=== PATIENT | male | born 1950 | race Caucasian/White ===

== ENCOUNTER → 2017-07-04 | Outpatient (CLI) | payer MEDICARE, BC ==
[~2017-07-04] MED LIST: ASCO10004 PO; ASPI-515 PO; ATOR10TA PO; FURO-93 PO; MV,M1TAB PO
[2017-07-04 15:50] LABS: BLOOD UREA NITROGEN 13 mg/dL (7-18)
[2017-07-04 15:54] LABS: ASPARTATE AMINO TRANSFERASE 21 U/L (15-37)
== END | disposition home or self-care (01) ==
LOC: LAB 12:22
PROVIDERS: ATTEND Internal Medicine Cardiovascular Disease
DX: E78.2 Mixed hyperlipidemia (principal); I25.10 Atherosclerotic heart disease of native coronary artery without angina pectoris
CPT/HCPCS: 36415; 80053; 80061

== ENCOUNTER → 2017-08-06 | Outpatient (CLI) | payer MEDICARE, BC | LOC: CFH 15:01 | PROVIDERS: ATTEND Physician Assistant | DX: N40.1 Benign prostatic hyperplasia with lower urinary tract symptoms (principal) | CPT/HCPCS: 36415; 84153 ==

== ENCOUNTER → 2017-08-27 | Outpatient (CLI) | payer MEDICARE, BC ==
[2017-08-27 16:03] LABS: MICROSCOPIC AUTO
[2017-08-27 16:08] LABS: CULTURE INDICATED? YES
== END | disposition home or self-care (01) ==
LOC: CFH 12:53
PROVIDERS: ATTEND Urology
DX: R33.9 Retention of urine, unspecified (principal)
CPT/HCPCS: 81001; 87077; 87086; 87186

== ENCOUNTER → 2017-11-04 | Outpatient (CLI) | payer MEDICARE, BC ==
[2017-11-04 15:44] LABS: ALANINE AMINOTRANSFERASE 70 U/L (12-78); ALBUMIN 2.9 g/dL (3.4-5.0); ANION GAP 9 mmol/L (5-15); CALCIUM 8.2 mg/dL (8.5-10.1); CHLORIDE 109 mmol/L (98-107); CHOLESTEROL, TOTAL 113 mg/dL (140-239); CREATININE 0.94 mg/dL (0.7-1.3)
[2017-11-04 15:47] LABS: ALKALINE PHOSPHATASE 65 U/L (45-117); BILIRUBIN,TOTAL 0.5 mg/dL (0.2-1.0); CHOL/HDL RATIO 2.8; HDL CHOL % 36 % (26-37); HDL CHOLESTEROL (DIRECT) 41 mg/dL (40-60); LDL CHOLESTEROL,CALCULATED 57 mg/dL (54-169); LDL/HDL RATIO 1.4 (0.5-3.0); TOTAL PROTEIN 6.4 g/dL (6.4-8.2); TRIGLYCERIDES 76 mg/dL (50-200); VLDL CHOLESTEROL 15 mg/dL (0-25)
== END | disposition home or self-care (01) ==
LOC: CFH 14:00
PROVIDERS: ATTEND Internal Medicine Cardiovascular Disease
DX: E78.2 Mixed hyperlipidemia (principal); I10 Essential (primary) hypertension
CPT/HCPCS: 36415; 80053; 80061

== ENCOUNTER → 2018-03-07 | Outpatient (CLI) | payer MEDICARE, BC ==
[2018-03-07 12:31] LABS: ANION GAP 9 mmol/L (5-15); CALCIUM 8.7 mg/dL (8.5-10.1); CHLORIDE 111 mmol/L (98-107); CREATININE 1.06 mg/dL (0.7-1.3)
== END | disposition home or self-care (01) ==
LOC: LAB 12:03
PROVIDERS: ATTEND Nurse Practitioner Family
DX: I10 Essential (primary) hypertension (principal); E78.2 Mixed hyperlipidemia
CPT/HCPCS: 36415; 80048

== ENCOUNTER → 2018-06-30 | Outpatient (CLI) | payer MEDICARE, BC ==
[~2018-06-30] MED LIST changes: +ASCO100019 PO; +ATOR20TA37 PO; +FURO20TA3 PO; +IRBE300T16 PO; +MULT-224 PO; +OMEP20TA62 PO; +POTA10CA PO; +PSYL0.5215 PO; +SPIR25TA5 PO; +TAMS-11 PO; +WARF-36 PO
[2018-06-30 15:01] LABS: BASOPHILS # (AUTO) 0.03 x10^3/uL (0-0.1); BASOPHILS % (AUTO) 0 % (0-1); EOSINOPHILS # (AUTO) 0.05 x10^3/uL (0-0.4); EOSINOPHILS % (AUTO) 1 % (1-7); LYMPHOCYTES # (AUTO) 2.29 x10^3/uL (1-3.4); LYMPHOCYTES % (AUTO) 25 % (22-44); MD NO; MEAN CORPUSCULAR HEMOGLOBIN 33.4 pg (27.5-34.5); MEAN CORPUSCULAR VOLUME 98.3 fL (81-97); MEAN PLATELET VOLUME 7.1 fL (7.4-10.4); MONOCYTES # (AUTO) 0.58 x10^3/uL (0.2-0.8); MONOCYTES % (AUTO) 6 % (2-9); NEUTROPHILS # (AUTO) 6.18 x10^3/uL (1.8-6.8); NEUTROPHILS % (AUTO) 68 % (42-75); PLATELET COUNT 221 x10^3/uL (130-400); RED BLOOD COUNT 4.37 x10^6/uL (4.38-5.82); RED CELL DISTRIBUTION WIDTH 13.4 % (9.4-14.8)
[2018-06-30 15:07] LABS: ALBUMIN 3.7 g/dL (3.4-5.0); ANION GAP 7 mmol/L (5-15); CALCIUM 8.7 mg/dL (8.5-10.1); CHLORIDE 108 mmol/L (98-107)
[2018-06-30 15:10] LABS: ALANINE AMINOTRANSFERASE 38 U/L (12-78); ALKALINE PHOSPHATASE 86 U/L (45-117); BILIRUBIN,TOTAL 0.7 mg/dL (0.2-1.0); CREATININE 1.25 mg/dL (0.7-1.3); TOTAL PROTEIN 7.1 g/dL (6.4-8.2)
== END | disposition home or self-care (01) ==
LOC: STAR 13:52
PROVIDERS: ATTEND Urology
DX: Z01.818 Encounter for other preprocedural examination (principal); N40.1 Benign prostatic hyperplasia with lower urinary tract symptoms
CPT/HCPCS: 36415; 80053; 85025; 93005

== ENCOUNTER 2018-07-08 10:13 | Day surgery (SDC) | payer MEDICARE, BC ==
[~2018-07-08] VITALS: Ht 177.8 cm; Wt 80.6 kg
[2018-07-08] MEDS ORDERED: LACTATED RINGERS 1,000 ML IV SCH (10:46)
[2018-07-08 11:19] VITALS: BP 112/70
[2018-07-08] MEDS ORDERED: DOXYCYCLINE PO (11:24)
[2018-07-08 11:36] LABS: INTERNATIONAL NORMALIZED RATIO 1.14 (0.93-1.1)
[2018-07-08] MEDS ORDERED: FENTANYL PF 250 MCG/5ML ONE (13:08)
[2018-07-08] MEDS ORDERED: GENTAMICIN 80 MG/2 ML ONE ×2 (13:19→13:25)
[2018-07-08] MEDS ORDERED: AMPICILLIN 2 GM ONE (13:19)
[2018-07-08] MEDS ORDERED: FENTANYL PF 100 MCG/2ML ONE (13:51)
[2018-07-08] MEDS ORDERED: DEXAMETHASONE 4 MG/ML, 1ML ONE (14:18)
[2018-07-08] MEDS ORDERED: PROPOFOL 10 MG/ML, 20ML ONE ×2 (14:18)
[2018-07-08] MEDS ORDERED: ONDANSETRON 2MG/ML, 2ML ONE (14:18)
[2018-07-08] MEDS ORDERED: CEFAZOLIN 1,000 MG ONE (14:18)
[2018-07-08] MEDS ORDERED: OXYcodone 5 MG/5 ML ORAL.SOL UDC ONE (14:50)
[2018-07-08] MEDS ORDERED: OXYcodone 5 MG/5 ML ORAL.SOL UDC PO PRN (15:00)
== END 2018-07-08 17:00 | disposition home or self-care (01) ==
LOC: OUT 10:13
PROVIDERS: ATTEND Urology
DX: N40.1 Benign prostatic hyperplasia with lower urinary tract symptoms (principal); R33.8 Other retention of urine; I10 Essential (primary) hypertension; G47.33 Obstructive sleep apnea (adult) (pediatric); K21.9 Gastro-esophageal reflux disease without esophagitis; I48.91 Unspecified atrial fibrillation; E78.00 Pure hypercholesterolemia, unspecified; Z79.899 Other long term (current) drug therapy; Z86.718 Personal history of other venous thrombosis and embolism
CPT/HCPCS: 36415; 52601; 85610; 85730; 88305; C1769; J0290; J0690; J1100; J1580; J2405; J2704; J3010; J7120

== ENCOUNTER → 2018-10-30 | Outpatient (CLI) | payer MEDICARE, BC ==
[~2018-10-30] MED LIST changes: +DOXYCYCLINE PO; -MULT-224 PO; +MULT-642 PO
[2018-10-30 15:08] LABS: ALBUMIN 4.2 g/dL (3.4-5.0); ANION GAP 8 mmol/L (5-15); CALCIUM 9.1 mg/dL (8.5-10.1); CHLORIDE 108 mmol/L (98-107)
[2018-10-30 15:11] LABS: ALANINE AMINOTRANSFERASE 42 U/L (12-78); ALKALINE PHOSPHATASE 89 U/L (45-117); CHOL/HDL RATIO 2.6; CHOLESTEROL, TOTAL 142 mg/dL (140-239); CREATININE 1.08 mg/dL (0.7-1.3); HDL CHOL % 38 % (26-37); HDL CHOLESTEROL (DIRECT) 54 mg/dL (40-60); LDL CHOLESTEROL,CALCULATED 71 mg/dL (54-169); LDL/HDL RATIO 1.3 (0.5-3.0); TOTAL PROTEIN 6.8 g/dL (6.4-8.2); TRIGLYCERIDES 86 mg/dL (50-200); VLDL CHOLESTEROL 17 mg/dL (0-25)
== END | disposition home or self-care (01) ==
LOC: CFH 13:07
PROVIDERS: ATTEND Physician Assistant
DX: E78.2 Mixed hyperlipidemia (principal)
CPT/HCPCS: 36415; 80053; 80061

== ENCOUNTER → 2018-12-15 | Outpatient (CLI) | payer MEDICARE, BC ==
[~2018-12-15] MED LIST changes: +REGADENOSON 0.4 MG/5 ML SYRINGE ONE
== END | disposition home or self-care (01) ==
LOC: CFH 12:49
PROVIDERS: ATTEND Internal Medicine Cardiovascular Disease
DX: I48.91 Unspecified atrial fibrillation (principal); I10 Essential (primary) hypertension; I25.10 Atherosclerotic heart disease of native coronary artery without angina pectoris
CPT/HCPCS: 78452; 93017; A9502; J2785

== ENCOUNTER 2019-10-23 12:42 | Outpatient (CLI) | payer MEDICARE, BC ==
[~2019-10-23 12:42] MED LIST changes: -IRBE300T16 PO; +IRBE300T8 PO; -REGADENOSON 0.4 MG/5 ML SYRINGE ONE
[2019-10-23 15:47] LABS: ALANINE AMINOTRANSFERASE 12 U/L (12-78); ALBUMIN 3.8 g/dL (3.4-5.0); ANION GAP 8 mmol/L (5-15); CALCIUM 9.2 mg/dL (8.5-10.1); CHLORIDE 112 mmol/L (98-107); CHOLESTEROL, TOTAL 143 mg/dL (140-239); CREATININE 0.95 mg/dL (0.7-1.3); TRIGLYCERIDES 92 mg/dL (50-200); VLDL CHOLESTEROL 18 mg/dL (0-25)
[2019-10-23 16:03] LABS: ALKALINE PHOSPHATASE 92 U/L (45-117); BILIRUBIN,TOTAL 1.1 mg/dL (0.2-1.0); CHOL/HDL RATIO 2.6; HDL CHOL % 38 % (26-37); HDL CHOLESTEROL (DIRECT) 54 mg/dL (40-60); LDL CHOLESTEROL,CALCULATED 71 mg/dL (54-169); LDL/HDL RATIO 1.3 (0.5-3.0); TOTAL PROTEIN 6.8 g/dL (6.4-8.2)
== END 2019-10-23 23:59 | disposition home or self-care (01) ==
LOC: CFH 12:42
PROVIDERS: ATTEND Internal Medicine Cardiovascular Disease
DX: E78.2 Mixed hyperlipidemia (principal); I10 Essential (primary) hypertension
CPT/HCPCS: 36415; 80053; 80061

== ENCOUNTER 2021-03-27 12:38 | Outpatient (CLI) | payer MEDICARE, BC ==
[~2021-03-27 12:38] MED LIST changes: +ASCO100018 PO; -ASCO10004 PO; -ASPI-515 PO; +ASPI-963 PO
[2021-03-27 13:04] LABS: ALANINE AMINOTRANSFERASE 36 U/L (12-78); ALBUMIN 3.4 g/dL (3.4-5.0); ANION GAP 4 mmol/L (5-15); CALCIUM 8.9 mg/dL (8.5-10.1); CHLORIDE 109 mmol/L (98-107); CREATININE 0.85 mg/dL (0.7-1.3)
[2021-03-27 13:32] LABS: ALKALINE PHOSPHATASE 105 U/L (45-117); BILIRUBIN,TOTAL 0.4 mg/dL (0.2-1.0); TOTAL PROTEIN 6.4 g/dL (6.4-8.2)
[2021-03-27 13:36] LABS: FOLATE LEVEL > 20.0 ng/mL (3.1-17.5)
== END 2021-03-27 23:59 | disposition home or self-care (01) ==
LOC: LAB 12:38
PROVIDERS: ATTEND Nurse Practitioner
DX: K21.9 Gastro-esophageal reflux disease without esophagitis (principal); G20 Parkinson's disease; K22.70 Barrett's esophagus without dysplasia
CPT/HCPCS: 36415; 80053; 82607; 82746; 83735

== ENCOUNTER 2021-04-04 12:30 | Outpatient (CLI) | payer MEDICARE, BC | END 2021-04-04 23:59 | disposition home or self-care (01) | LOC: RAD 12:30 | PROVIDERS: ATTEND Nurse Practitioner | DX: K44.9 Diaphragmatic hernia without obstruction or gangrene (principal); K22.70 Barrett's esophagus without dysplasia; K21.9 Gastro-esophageal reflux disease without esophagitis; G20 Parkinson's disease; R13.10 Dysphagia, unspecified | CPT/HCPCS: 74220 ==